=== PATIENT | female | born 1990 ===

== ENCOUNTER 2020-05-18 09:17 | Outpatient (CLI) | payer OTHER ==
[2020-05-18 18:34] LABS: SARS-CoV-2 MS2 Positive; SARS-CoV-2 N Gene Negative; SARS-CoV-2 S Gene Negative; SARS-CoV-2 by NAA Not Detected (NotDetected); SARS-CoV-2 orf1ab Negative
== END 2020-05-18 09:18 | disposition home or self-care (01) ==
LOC: LABBT 09:17
PROVIDERS: ATTEND Obstetrics & Gynecology
DX: Z01.812 Encounter for preprocedural laboratory examination (principal); Z20.828 Contact with and (suspected) exposure to other viral communicable diseases
CPT/HCPCS: 87635; U0003